=== PATIENT | male | born 1955 | race Caucasian/White ===

== ENCOUNTER 2019-09-28 14:55 | Outpatient (CLI) | payer BC, SELFPAY ==
--- NOTE | 2019-09-28 15:01 | ECG_ITS ---
Measurements Intervals [place] Rate: 62 P: 80 FL: 177 QRS: 94 QRSD: 112 T: 53 QT: 390 QTc: 396 Interpretive Statements SINUS RHYTHM RIGHT AXIS DEVIATION INCOMPLETE RIGHT BUNDLE BRANCH BLOCK BASELINE ARTIFACT- I, II, AVR, AVL, V3 BORDERLINE ECG Electronically Signed On 09-28-2019 15:42:40 FLIGHT LINE MECHANIC by Duong Gong D.O.
== END 2019-09-28 14:56 | disposition home or self-care (01) ==
LOC: ANHSURGERY 15:01
PROVIDERS: PCP Family Medicine; Visit Provider Surgery
DX: Z01.818 Encounter for other preprocedural examination (principal); K40.91 Unilateral inguinal hernia, without obstruction or gangrene, recurrent; F17.210 Nicotine dependence, cigarettes, uncomplicated
CPT/HCPCS: 36415; 86850; 86900; 86901; 93005

== ENCOUNTER 2019-10-06 00:14 | Day surgery (SDC) | payer BC, SELFPAY ==
[2019-09-22 12:48] VITALS: BMI 20.1
[2019-10-06] VITALS (17 sets, daily range): BP systolic 102–164; BP diastolic 57–94; PULSE 49–76; RESP 11–16; TEMP 36.4–36.6; O2SAT 100
[2019-10-06] MEDS: LACTATED RINGERS 1,000 ML 30 ML IV CONT ×4 (06:50→13:41)
--- NOTE | 2019-10-06 07:00 | WPDHPUPDATE1 ---
History and Physical Update Update Date/Time: 10/06/19 07:00 History and Physical has been reviewed, including an updated exam of the patient. There are NO changes in the patient's condition. Risks, benefits, and alternatives have been discussed and questions answered. Patient agrees to proceed with procedure.
[2019-10-06] MEDS: IBUPROFEN IV 800 MG/200 ML 800 MG/200 ML BAG 400 MG IVPB (07:30)
--- NOTE | 2019-10-06 08:05 | P.PNAN_ITS ---
Anes - Initial Pre Proc Eval Procedure: Operation Date: 10/06/19 08:30 Proposed Procedures p Laparoscopic Recurrent Right Inguinal Hernia Repair With Mesh, Laparoscopic Left Inguinal Hernia Repair With Mesh, Davinci Assisted - Buck Mejia DO s Open Umbilical Hernia Repair - Buck Mejia DO Date/Time: 10/06/19 08:05 Surgeon: Buck Mejia DO Pre Op Diagnosis: Recu Rt Inguinal, Left Inguinal, Umbilical Hernia Patient Data Age: 64 Gender: M Height: 1.78 m Weight: 63.3 kg Last Vital Signs Temp 36.6 C 10/06/19 07:07 Pulse 71 10/06/19 07:07 Resp 16 10/06/19 07:07 BP 117/74 10/06/19 07:07 Pulse Ox 100 10/06/19 07:07 Allergies Allergy/AdvReac Type Severity Reaction Status Date / Time lactose Allergy Mild Nausea Verified 10/06/19 06:31 Home Medications Medication Instructions Recorded Confirmed Type tamsulosin 0.4 mg capsule 0.4 mg PO DAILY 09/11/19 10/06/19 History Patient hx anesthesia problems: none Family hx anesthesia problems: none [facility] Past Medical History Medical History (Updated 10/06/19 @ 08:07 by Prosper Mace MD) BPH (benign prostatic hyperplasia) Emphysema, unspecified Enlarged prostate Surgical History Surgical History (Updated 10/06/19 @ 08:07 by Prosper Mace MD) H/O hernia repair right groin History of appendectomy History of testicular surgery Hx of cervical spine surgery Hx of spinal surgery C4-5, C6-7 FUSION 15/20 YRS AGO Social History Social History Smoking status: Current every day smoker Tobacco type: cigarettes Second hand tobacco smoke exposure: Yes Alcohol intake: current Substance use: never Additional occupation/education comments: [employer] Gender identity (if verbalized by the patient): Male Anes - Eval Final PreProcedure Day of Procedure 10/06/19 08:05 Patient weight: normal Heart: regular rate and rhythm Lungs: clear to auscultation and normal air movement Airway: Mallampati scale class II Neurological: alert and oriented Last oral intake: >/= 8 hours ASA classification: III Emergent: no Anesthetic plan: proceed Anesthesia type and monitoring: general LMA Informed Consent: The patient's anesthetic plan and its attendant risks and benefits were discussed with the patient/family/POA. Questions were solicited and answers provided to the satisfaction of the patient/family/POA.
[2019-10-06] MEDS: ceFAZolin 2 GM/D5W 50 ML 2 GM/50 ML BAG IVPB (08:30)
[2019-10-06] MEDS: BUPIVACAINE/EPINEPHRINE 0.5% 30 ML VIAL INFILTRATE (09:09)
--- NOTE | 2019-10-06 10:20 | PM.PROC ---
Procedure Note - Detailed Date of procedure: 10/06/19 Pre-op diagnosis: 1. Recurrent right inguinal hernia 2. Left inguinal hernia 3. Umbilical hernia Post-op diagnosis: same (Recurrent direct RIH, direct LIH, umbilical hernia) Procedure performed: 1. Laparoscopic recurrent right inguinal hernia repair with Progrip mesh, da Breanne assisted 2. Laparoscopic left inguinal hernia repair with Progrip mesh, da Breanne assisted 3. Umbilical hernia repair Description of procedure: Procedure as well as risks, benefits, and alternatives were discussed with the patient. Written consent was obtained and placed in chart prior to procedure. Patient was brought back to surgical suite. He was placed supine on operating table. Time-out was done to confirm patient and procedure. He was then intubated by Anesthesia Department. His abdomen was prepped and draped in sterile fashion using chlorhexidine prep. 0.5% bupivacaine with epinephrine was infiltrated at each location for incision. A 20 millimeter transverse incision was made just superior to the umbilicus using a 15 blade scalpel. I carefully dissected down to the fascia and identified the umbilical hernia. The hernia sac was carefully lifted off the umbilical stalk using electrocautery. Hernia sac was resected using electrocautery and discarded. A 12 millimeter trocar was inserted through the hernia defect and carbon dioxide insufflation was used to create a pneumoperitoneum. A camera was inserted and the abdominal cavity was inspected. The patient was placed in slight Trendelenburg position. An 8 millimeter incision was made on the right lateral abdomen and an 8 millimeter trocar was inserted under direct visualization. Another 8 millimeter incision was made in the left lateral abdomen and an 8 millimeter trocar was inserted under direct visualization. The robotic arms were brought up to the patient's bedside and secured to the ports. The camera and instruments were inserted. I then moved over to the robotic console and took control of the camera and instruments. After careful inspection of the abdominal cavity, I began scoring the peritoneum along the right lower quadrant using scissors with electrocautery. The preperitoneal plane was entered and this was carefully dissected caudally along the inferior epigastric vessels. Careful dissection with scissors with electrocautery and blunt dissection was used to continue this dissection. I dissected far enough laterally to allow for mesh placement, and also dissected medially to identify the pubic arch and Demarco's ligament. The hernia sac was identified and carefully dissected posteriorly. The cord contents were also identified and the peritoneum was carefully dissected far enough posteriorly to allow for mesh placement. Once an adequate pocket was created, I then placed the mesh within the preperitoneal pocket and carefully unfolded it. The mesh was centered on the hernia defect with adequate overlap circumferentially. The inferior edge of the mesh was inspected to ensure that it was far enough away from the peritoneal edge. The mesh appeared in proper position overlying the entire myopectineal orifice. The peritoneum was then closed over the mesh using a 3-0 V-lock running absorbable suture. I then began scoring the peritoneum along the left lower quadrant using scissors with electrocautery. The preperitoneal plane was entered and this was carefully dissected caudally along the inferior epigastric vessels. Careful dissection with scissors with electrocautery and blunt dissection was used to continue this dissection. I dissected far enough laterally to allow for mesh placement, and also dissected medially to identify the pubic arch and Demarco's ligament. The hernia sac was identified and carefully dissected posteriorly. The cord contents were also identified and the peritoneum was carefully dissected far enough posteriorly to allow for mesh placement. Once an adequa
== END 2019-10-06 17:21 | disposition home or self-care (01) ==
PROVIDERS: PCP Family Medicine; Visit Provider Surgery
PROC: 8E0Y4CZ Robotic Assisted Procedure of Lower Extremity, Percutaneous Endoscopic Approach (ICD-10-PCS; CPT 49650; principal; 2019-10-06 08:30)
PROC: (CPT 49651; 2019-10-06 08:30)
DX: K40.91 Unilateral inguinal hernia, without obstruction or gangrene, recurrent (principal); K40.90 Unilateral inguinal hernia, without obstruction or gangrene, not specified as recurrent; K42.9 Umbilical hernia without obstruction or gangrene; N40.0 Benign prostatic hyperplasia without lower urinary tract symptoms; J43.9 Emphysema, unspecified; F17.210 Nicotine dependence, cigarettes, uncomplicated
CPT/HCPCS: 49651; 49650; S2900; A9270; C1781; J0690; J1100; J1741; J2405; J2704; J2710; J3010; J7030; J7120

== ENCOUNTER → 2020-04-14 10:41 | Outpatient (CLI) | payer BC, SELFPAY ==
--- NOTE | ~2020-04-14 | XR_ITS ---
XR abdomen/kub 1V DATE: 04/14/2020 10:55 INDICATION: Gross hematuria TECHNIQUE: AP views COMPARISON: 07/06/2019 CT abdomen pelvis FINDINGS: There is a prominent amount of feces in the colon. No bowel obstruction is detected. No v isceromegaly is detected. The lung bases are clear. Normal heart size. Diffuse osteopenia. There is degenerative spurring of the thoracic and lumbar spine. IMPRESSION: Prominent amount of feces in the colon; no obstruction Reviewed, dictated and finalized at Location A. Reviewed, dictated and finalized at location A.
--- NOTE | ~2020-04-14 | CT_ITS ---
EXAMINATION: CT abdomen pelvis wo/w con DATE: 04/14/2020 11:32 INDICATION: Gross hematuria TECHNIQUE: Computed tomography (CT) of the abdomen and pelvis was performed without intravenous contr ast. CT of the abdomen and pelvis was then performed with a total of 130 mL Omnipaque 350 intravenous contrast using a double-bolus technique for simultaneous opacification of the renal parenchyma and r enal collecting system. The dose-length product (DLP) was 715.69 mGy-cm. Automated exposure control a nd iterative reconstruction technique were employed. COMPARISON: 07/06/2019 FINDINGS: There is severe emphysema of the visualized lung bases. Punctate calcifications in otherwis e normal appearing liver and spleen likely represent healed granulomatous disease. There is a small s liding hiatal hernia. The pancreas, gallbladder, and adrenal glands are normal. No stones are identif ied in the kidneys, ureters, or bladder. There is no hydronephrosis or hydroureter. No suspicious vibha al or urothelial lesion is identified. No pathologically enlarged abdominal or pelvic lymph nodes are identified. There is no free intraperitoneal gas or evidence of bowel obstruction. There is calcifie d atherosclerosis of the aorta and many of the other arteries. There is mild lumbar spondylosis. IMPRESSION: 1. No CT correlate for the patient's symptoms. Reviewed, dictated and finalized at location B.
[2020-04-14 11:09] LABS: Estimated Glomerular Filt Rate > 60
== END ==
PROVIDERS: PCP Family Medicine; Visit Provider Urology
DX: R31.0 Gross hematuria (principal)
CPT/HCPCS: 74018; 74178; Q9967

== ENCOUNTER → 2021-12-26 12:34 | Outpatient (CLI) | payer BC, SELFPAY ==
--- NOTE | ~2021-12-26 | CT_ITS ---
EXAMINATION: CT abdomen pelvis wo con DATE: 12/26/2021 13:02 INDICATION: Right lower quadrant abdominal pain TECHNIQUE: Computed tomography (CT) of the abdomen and pelvis was performed without intravenous contr ast. Automated exposure control and iterative reconstruction technique were employed. The dose-length product was 318.37 mGy-cm. COMPARISON: 04/14/2020 FINDINGS: Moderate emphysema at the bilateral lower lungs. Heart size is normal. Atherosclerotic coronary arter y calcific lesions versus stenting at the right coronary artery. No pericardial or pleural effusion. Multiple hepatic and splenic calcifications consistent with old granulomatous disease. Gallbladder, p ancreas and bilateral adrenal glands are normal. Kidneys and ureters are normal with no urolithiasis, hydroureteronephrosis or perinephric/ureteral stranding. Bladder is normal. Prostatomegaly. Prostati c calculus cases in several phleboliths in the pelvis. No abnormal bowel wall thickening or obstructi on. A few diverticula along the sigmoid colon without adjacent inflammatory change to suggest diverti culitis. No free intraperitoneal gas or fluid. No pathologically enlarged abdominal or pelvic lymphad enopathy. Small fat-containing left inguinal hernia. Moderate lumbar and lower thoracic spondylosis. IMPRESSION: 1. No urolithiasis or acute intra-abdominal/pelvic process. 2. Moderate emphysema. 3. Prostatomegaly. Reviewed, dictated and finalized at location B.
--- NOTE | ~2021-12-26 | XR_ITS ---
XR abdomen/kub 1V 12/26/2021 13:02 Indication: Right lower quadrant pain Procedure: KUB Comparison: 04/14/2020 Findings: Nonobstructive bowel gas pattern. Moderate colonic fecal loading. There is moderate gas in the left colon at the splenic flexure. There are calcified granulomas of the spleen. Lung bases are u nremarkable. There are multiple pelvic phleboliths. No acute osseous abnormality. Generalized osteope marisela. Impression: 1: Nonobstructive bowel gas pattern. Reviewed, dictated and finalized at location A. Impression: 1: Nonobstructive bowel gas pattern.
== END ==
PROVIDERS: PCP Urology; Visit Provider Urology
DX: R10.31 Right lower quadrant pain (principal); J43.9 Emphysema, unspecified; N40.0 Benign prostatic hyperplasia without lower urinary tract symptoms
CPT/HCPCS: 74018; 74176

== ENCOUNTER 2024-08-21 11:16 | Outpatient (CLI) | payer BC, SELFPAY ==
--- NOTE | ~2024-08-21 | XR_ITS ---
3 VIEWS LUMBAR SPINE Ordering provider: Rachel Giordano APRN History: . M54.50 - Low back pain, unspecified . Comparison: None. FINDINGS: VERTEBRAL BODIES: No visible fracture or subluxation. Osteopenia of the bones. Degenerative changes o f the spine. DISK SPACES: Narrowing of the disc L1-L2, L2-L3, and L4-L5 SOFT TISSUES: Atherosclerotic changes of the aorta. IMPRESSION: No acute osseous abnormality lumbar spine. Multilevel degenerative disc disease. Reviewed, dictated and finalized at location A. 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
== END 2024-08-21 11:17 | disposition home or self-care (01) ==
PROVIDERS: PCP Nurse Practitioner Family; Visit Provider Nurse Practitioner Family
DX: M51.369 Other intervertebral disc degeneration, lumbar region without mention of lumbar back pain or lower extremity pain (principal)
CPT/HCPCS: 72100

== ENCOUNTER 2024-09-07 06:50 | Outpatient (CLI) | payer BC, SELFPAY ==
--- NOTE | ~2024-09-07 | MR_ITS ---
EXAMINATION: MR lumbar spine wo con DATE: 09/07/2024 07:34 INDICATION: Low back pain, unspecified. TECHNIQUE: Magnetic resonance imaging (MRI) of the lumbar spine was performed without intravenous con trast. Sequences included sagittal T2-weighted FSE, sagittal T2-weighted FS FSE, sagittal T1-weighted FSE, and axial T2-weighted FSE. COMPARISON: Lumbar spine radiographs 08/21/2024 FINDINGS: There is 9 degrees levocurvature of thoracolumbar spine. There is mild chronic anterior wed ging of T12 and L1 vertebral bodies. There is mild chronic height loss at L3, L4, and L5 vertebral justin dies. There is mildly decreased disc height at L1-L2 and moderately decreased disc height at L4-L5. T he distal spinal cord signal intensity is normal. The conus medullaris is at T12-L1. The following di sc levels are specifically discussed: L1-L2: The disc is bulging. There is mild bilateral facet joint osteoarthritis. There is mild bilater al neural foraminal stenosis. There is mild central canal stenosis. L2-L3: The disc is bulging. There is severe bilateral facet joint osteoarthritis. There is hypertroph y of the ligamentum flavum. There is mild bilateral neural foraminal stenosis. There is mild central canal stenosis. L3-L4: The disc is bulging. There is severe bilateral facet joint osteoarthritis. There is hypertroph y of the ligamentum flavum. There is moderate bilateral neural foraminal stenosis. There is moderate central canal stenosis. L4-L5: The disc is bulging. There is moderate bilateral facet joint osteoarthritis. There is moderate bilateral neural foraminal stenosis. There is mild central canal stenosis. L5-S1: The disc is bulging. There is moderate bilateral facet joint osteoarthritis. There is mild cody ateral neural foraminal stenosis. There is mild central canal stenosis. IMPRESSION: 1. Moderate lumbar spondylosis. 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
== END 2024-09-07 06:51 | disposition home or self-care (01) ==
LOC: MICIMG 06:51
PROVIDERS: PCP Nurse Practitioner Family; Visit Provider Nurse Practitioner Family
DX: M47.816 Spondylosis without myelopathy or radiculopathy, lumbar region (principal); M51.360 Other intervertebral disc degeneration, lumbar region with discogenic back pain only
CPT/HCPCS: 72148

== ENCOUNTER 2024-11-11 11:49 | Outpatient (CLI) | payer BC, SELFPAY ==
--- NOTE | ~2024-11-11 | XR_ITS ---
3 VIEWS LUMBAR SPINE Ordering provider: Rosemarie Baldwin APRN History: . M54.50 - Low back pain, unspecified . Comparison: August 21, 2024 FINDINGS: VERTEBRAL BODIES: No visible fracture or subluxation. Osteopenia. Chronic loss of height of T12 and L1 is seen. Degenerative changes of the spine. DISK SPACES: Narrowing of this L1-L2, L2-L3, L3-L4 and L4-L5. Degenerative changes of the spine. Facet joint disease at the level of L5-S1. SOFT TISSUES: Atherosclerotic changes of the aorta. IMPRESSION: No acute osseous abnormality lumbar spine. Multilevel degenerative disc disease. Reviewed, dictated and finalized at location A.
== END 2024-11-11 11:50 | disposition home or self-care (01) ==
LOC: MICIMG 11:50
PROVIDERS: PCP Nurse Practitioner Adult Health; Visit Provider Nurse Practitioner Adult Health
DX: M51.369 Other intervertebral disc degeneration, lumbar region without mention of lumbar back pain or lower extremity pain (principal)
CPT/HCPCS: 72110

== ENCOUNTER 2024-11-25 10:20 | Outpatient (CLI) | payer BC, SELFPAY ==
--- NOTE | ~2024-11-25 | US_ITS ---
EXAMINATION:US venous doppler LE BI INDICATION:Leg edema TECHNIQUE: Multiple grayscale, color flow and Doppler images of the right and left lower extremity de ep venous systems were obtained and reviewed. COMPARISON:No prior studies for comparison. FINDINGS: The common femoral, superficial femoral and popliteal veins demonstrate normal respiratory variation, augmentation and compressibility. Color flow is also seen within the posterior tibial, pe roneal, greater saphenous and profunda veins. IMPRESSION: 1: No lower extremity deep venous thrombosis. Reviewed, dictated and finalized at location A.
== END 2024-11-25 10:21 | disposition home or self-care (01) ==
LOC: MICIMG 10:21
PROVIDERS: PCP Nurse Practitioner Family; Visit Provider Nurse Practitioner Family
DX: R60.0 Localized edema (principal)
CPT/HCPCS: 93970

== ENCOUNTER 2024-12-14 12:27 | Outpatient (CLI) | payer BC, SELFPAY ==
--- OUTSIDE RECORDS SUMMARY | 2024-12-14 12:30 | XMS_ITS | Clinical Summary ---
Author Organization [facility] Address [address] [place] [address] Phone Care Team Providers Care Surface Plate Inspector Name Role Phone Sandrita Carpenter MD Primary Care Provider [phone] Allergies No known active allergies Medications No known medications Social History Tobacco Use Types Packs/Day Years Used Date Smoking Tobacco: Unknown Tobacco Cessation:Counseling Given: Not Answered Sex and Gender Information Value Date Recorded Sex Assigned at Not on file Legal Sex Male 2:25 PM CDT Gender Identity Not on file Sexual Orientation Not on file Last Filed Vital Signs Vital Sign Reading Time Taken Comments Blood Pressure 158/79 03/07/2024 8:18 AM CDT Pulse 60 03/07/2024 8:18 AM CDT Temperature 35.8 C (96.5 F) 03/07/2024 8:18 AM CDT Respiratory Rate 16 03/07/2024 8:18 AM CDT Oxygen Saturation 99% 03/07/2024 8:18 AM CDT Inhaled Oxygen Concentration - - Weight 61.7 kg (136 lb 0.4 oz) 03/07/2024 8:18 A M CDT Height 177.8 cm (5' 10 ) 03/07/2024 8:18 AM CDT Body Mass Index 19.52 03/07/2024 8:18 AM CDT Plan of Treatment Not on file Insurance MEDICARE [facility] Care Teams Surface Plate Inspector Relationship Specialty Start Date End Date Sandrita Carpenter MD [address] [place] [address] PCP - General Family Medicine 02/29/24
--- NOTE | 2024-12-14 12:34 | ECHO_ITS ---
Patient Info Name: Shan Edmond Age: 69 years : 1955 Gender: Male Ht: 70 in Wt: 135 lbs BSA: 1.73 m2 HR: 66 bpm BP: 196 / 89 mmHg Technical Quality: Good Exam Date: 12/14/2024 12:38 PM Exam Location: Echo Lab Patient Status: Outpatient Admit Date: 12/14/2024 Staff Ordering Physician: Rachel Giordano APRN Esthetician And Manager Medical Spa: Verónica Adams RDCS Attending Provider: Rachel Giordano APRN Referring Physician: Pasquale COTTER; Exam Type: CA echo doppler color flow Study Info Indications R60.9 - Edema, unspecified Complete two-dimensional, color flow and Doppler transthoracic echocardiogram is performed. Summary 1. Complete two-dimensional, color flow and Doppler transthoracic echocardiogram is performed. 2. Left ventricular chamber dimension is normal. 3. Left ventricular systolic function is normal, estimated at 60-65%. 4. The left ventricular diastolic function is grade I diastolic dysfunction. 5. E/e' 6 is not elevated. 6. There is mild aortic valve sclerosis. 7. There is mild aortic valve regurgitation. 8. There is mild mitral valve regurgitation. 9. There is trace tricuspid valve regurgitation. 10. No pulmonary hypertension, estimated pulmonary arterial systolic pressure is 31 mmHg. Left Ventricle E/e' 6 is not elevated. Left ventricular chamber dimension is normal. Left ventricular systolic function is normal, estimated at 60-65%. The left ventricular diastolic function is grade I diastolic dysfunction. Right Ventricle Right ventricular chamber dimension is normal. Right ventricular systolic function is normal. Left Atria Left atrial chamber dimension is normal. Right Atria Right atrial chamber dimension is normal. Aortic Valve The aortic valve is trileaflet. There is mild aortic valve sclerosis. There is no aortic valve stenosis. There is mild aortic valve regurgitation. Pulmonic Valve There is no pulmonic regurgitation. Mitral Valve There is no mitral valve stenosis. There is mild mitral valve regurgitation. Tricuspid Valve There is trace tricuspid valve regurgitation. No pulmonary hypertension, estimated pulmonary arterial systolic pressure is 31 mmHg. Pericardium/Pleural There is no pericardial effusion. Inferior Vena Cava Normal inferior vena cava with >50% collapse upon inspiration consistent with normal right atrial pressure, 5 mmHg. Aorta The aortic root size at the sinus of Valsalva is normal. Left Ventricular Outflow Tract Name Value Normal LVOT 2D LVOT Diameter 2.0 cm LVOT Doppler LVOT Peak Gradient 3 mmHg LVOT Mean Gradient 1 mmHg LVOT VTI 18 cm LVOT VTI/AV VTI Ratio 0.6 LVOT Stroke Volume 55 ml LVOT CO 3.3 l/min LVOT CI 1.9 l/min/m2 Pulmonic Valve Name Value Normal RVOT Doppler RVOT Peak Gradient 1 mmHg PV Doppler PV Peak Gradient 4 mmHg Mitral Valve Name Value Normal MV Doppler MV Decel [place] 242 cm/s2 MV PHT 79 ms MV Area (PHT) 2.8 cm2 4.0-5.0 MV Diastolic Function MV E Peak Velocity 66 cm/s MV A Peak Velocity 67 cm/s MV E/A 1.0 MV Decel Time 272 ms Tricuspid Valve Name Value Normal TV Regurgitation Doppler TR Peak Velocity 254 cm/s TR Peak Gradient 22 mmHg Estimated PAP/RSVP RA Pressure 5 mmHg <=5 PA Systolic Pressure 31 mmHg <36 RV Systolic Pressure 31 mmHg <36 Aorta Name Value Normal Ascending Aorta Ao Root Diameter (MM) 3.5 cm Ao Root Diam Index (MM) 2.0 cm/m2 Aortic Valve Name Value Normal AV Doppler AV Peak Velocity 117 cm/s AV Peak Gradient 5 mmHg AV Mean Gradient 3 mmHg AV VTI 28 cm AV Area (Cont Eq VTI) 1.9 cm2 >=3.0 AV Area (Cont Eq Noel) 2.1 cm2 AV Regurgitation 2D LVOT Area 3.0 cm2 AV Regurgitation Doppler AR Decel Time 2,542 ms AR Decel [place] 174 cm/s2 AR PHT 737 ms Ventricles Name Value Normal LV Dimensions 2D/MM IVS Diastolic Thickness (2D) 1.0 cm 0.6-1.0 IVS Diastole Thickness (MM) 0.5 cm 0.6-1.0 LVID Diastole (2D) 4.3 cm 4.2-5.8 LVID Diastole (MM) 5.9 cm 4.2-5.8 LVIW Diastolic Thickness (2D) 1.0 cm 0.6-1.0 LVIW Diastolic Thickness (MM) 0.7 cm 0.6-1.0 LVID Systole (2D) 2.6 cm 2.5-4.0 LVID Systole (MM) 3.1 cm 2.5-4.0 LVOT Diameter 2.0 cm LV Mass (2D Cubed) 146.23 g 88.00-224.00 LV Mass Index (2D Cubed) 85 g/m2 49-115 Relative Wall Thickness (2D) 0.47 LV Mass (MM Cubed) 123.87 g 88.00-224.00 LV Mass Index (MM Cubed) 72 g/m2 49-115 Relative Wall Thickness (MM) 0.25 LV Fractional Shortening/Ejection Fraction 2D/MM LV Fractional Shortening (2D) 38 % 25-43 LV Fractional Shortening (MM) 47 % 25-43 LV EF (MM Teicholz) 77 % 52-72 LV EF (2D Teicholz) 69 % 52-72 LV Diastolic Volume (4C MOD) 64 ml LV EF (4C MOD) 67 % LV Diastolic Volume (2C MOD) 74 ml LV EF (2C MOD) 63 % LV Diastolic Volume (BP MOD) 70 ml 62-150 LV Diastolic Volume Index (BP MOD) 40 ml/m2 34-74 LV Systolic Volume (BP MOD) 24 ml 21-61 LV Systolic Volume Index (BP MOD) 14 ml/m2 11-31 LV EF (BP MOD) 65 % 52-72 LV Diastolic Length (4C) 7.6 cm LV Systolic Length (4C) 6.1 cm LV Stroke Volume (4C MOD) 43 ml Atria Name Value Normal LA Dimensions LA Dimension (MM) 3.4 cm 3.0-4.1 LA Volume (4C A-L) 26 ml LA Volume (BP A-L) 37 ml RA Dimensions RA Area (4C) 14.4 cm2 <=18.0 Report Signatures
== END 2024-12-14 12:28 | disposition home or self-care (01) ==
PROVIDERS: PCP Nurse Practitioner Family; Visit Provider Nurse Practitioner Family
DX: R93.1 Abnormal findings on diagnostic imaging of heart and coronary circulation (principal); R60.9 Edema, unspecified
CPT/HCPCS: 93306

== ENCOUNTER 2024-12-23 08:23 | Outpatient (CLI) | payer BC, SELFPAY ==
--- NOTE | ~2024-12-23 | XR_ITS ---
EXAMINATION: XR chest 2V DATE: 12/23/2024 10:13 INDICATION: Lumbar spinal stenosis TECHNIQUE: PA and lateral views of the chest were obtained. COMPARISON: Chest radiograph dated 06/06/2011 FINDINGS: Hyperexpansion lungs consistent with emphysema better appreciated on CT abdomen dated 12/26/2021. Mild biapical pleural-parenchymal scarring. Calcified right hilar and mediastinal lymph nodes consistent with old granulomatous disease. The cardiomediastinal silhouette is normal. Mild thoracic spondylosis with chronic mild anterior wedging of a couple lower thoracic vertebral bodies. IMPRESSION: 1. Emphysema. No acute cardiopulmonary disease. Reviewed, dictated and finalized at location A.
--- OUTSIDE RECORDS SUMMARY | 2024-12-23 09:08 | XMS_ITS | Clinical Summary ---
Author Organization [facility] Address [address] [place] [address] Phone Care Team Providers Care Clinical Applications Manager Name Role Phone Sandrita Carpenter MD Primary Care Provider Allergies No known active allergies Medications No [...] of Treatment Not on file Insurance MEDICARE [facility] Care Teams Clinical Applications Manager Relationship Specialty Start Date End Date Sandrita Carpenter MD [address] [place] [address] PCP - General Family Medicine 02/29/24
--- NOTE | 2024-12-23 09:46 | ECG_ITS ---
Test Date: 2024-12-23 09:53:33 Measurements Intervals [place] Rate: 53 P: 80 MI: 177 QRS: 82 QRSD: 107 T: 47 QT: 426 QTc: 401 Interpretive Statements SINUS BRADYCARDIA TALL T-WAVES, SUGGESTS HYPERKALEMIA VERSUS HYPERACUTE ISCHEMIA PATTERN ABNORMAL ECG No previous ECG available for comparison Electronically Signed On 12-23-2024 13:14:01 CDT by Jesse Laureano M.D.
[2024-12-23 10:17] LABS: Hematocrit 45.9 % (42.0-52.0); Hemoglobin 14.8 g/dL (14.0-18.0); Mean Corpuscular HGB Conc 32.2 g/dl (32-36); Mean Corpuscular Hemoglobin 32.4 pg (26-34); Mean Corpuscular Volume 100.4 fl (80-100); Mean Platelet Volume 10.3 fl (7.4-10.4); Platelet Count Result 220 k/mm3 (150-375); Red Blood Count 4.57 M/mm3 (4.6-6.20)
[2024-12-23 10:28] LABS: Add Urine Microscopic? YES; Appearance Urine Clear (Clear); Bacteria Urine None Seen /hpf; Bilirubin Urine Negative (Negative); Blood Urine Negative (Negative); Color Urine Yellow (Yellow); Glucose Urine UA Negative (Negative); Ketones Urine Negative (Negative); Leukocyte Esterase Ur Trace LEU/UL (Negative); Nitrate Urine Negative (Negative); Non Pathogenic Casts 0-2; Protein Urine Negative (Negative); RBC Urine 0-2 /hpf (0-2); Specific Grav Ur 1.009 (1.001-1.035); Squamous Epithelial Cell Urine None Seen /hpf (Few); Urobilinogen Urine 0.2 mg/dL (<2.0); WBC Urine 0-5 /hpf (0-3)
[2024-12-23 10:29] LABS: INR 1.1; Prothrombin Time 14.3 Seconds (11.1-14.7)
[2024-12-23 10:30] LABS: Partial Thromboplastin Time 28.5 Seconds (22.3-36.8)
[2024-12-23 10:36] LABS: Anion Gap 6 mmol/L (4-12); Blood Urea Nitrogen 13 mg/dL (9-20); Calcium 9.4 mg/dL (8.4-10.2); Carbon Dioxide 29 mmol/L (22-30); Chloride 107 mmol/L (98-107); Estimated Glomerular Filt Rate > 60; Glucose 102 mg/dL (65-110); Potassium 4.9 mmol/L (3.4-5.0); Sodium 142 mmol/L (137-145)
== END 2024-12-23 08:24 | disposition home or self-care (01) ==
PROVIDERS: PCP Nurse Practitioner Family; Visit Provider Neurological Surgery
DX: Z01.818 Encounter for other preprocedural examination (principal); M48.062 Spinal stenosis, lumbar region with neurogenic claudication
CPT/HCPCS: 36415; 71046; 80048; 81001; 85027; 85610; 85730; 93005

== ENCOUNTER 2024-12-30 09:07 | Outpatient (CLI) | payer BC, SELFPAY ==
--- NOTE | ~2024-12-30 | NM_ITS ---
EXAMINATION: NM gi stress w perfusion DATE: 12/30/2024 12:21 INDICATION: Abnormal EKG TECHNIQUE: Rest images were obtained following intravenous administration of 10 mCi Tc99m tetrofosmin (Myoview). The patient was infused intravenously with Lexiscan (Regadenoson). Then, 33 mCi Tc99m tet rofosmin (Myoview) was administered intravenously, and stress images were obtained. Data was reconstr ucted into short axis and horizontal and vertical long axis SPECT images. Gated SPECT images were als o obtained. COMPARISON: None. FINDINGS: There is no definite reversible or fixed perfusion abnormality to suggest ischemia or infar ction. There is normal left ventricular chamber size, wall motion and ejection fraction. Left ventr icular ejection fraction measures >70%. IMPRESSION: 1. Normal myocardial perfusion at rest and during stress. 2. Left ventricular ejection fraction measuring >70%. Reviewed, dictated and finalized at location A.
--- OUTSIDE RECORDS SUMMARY | 2024-12-30 09:12 | XMS_ITS | Clinical Summary ---
Author Organization [facility] Address [address] [place] [address] Phone Care Team Providers Care Depot Manager Name Role Phone Sandrita Carpenter MD Primary Care Provider [phone] Allergies No known active allergies Medications No [...] A M CDT Height 177.8 cm (5' 10) 03/07/2024 8:18 AM CDT Body Mass Index 19.52 03/07/2024 8:18 AM CDT Plan of Treatment Not on file Insurance MEDICARE [facility] Care Teams Depot Manager Relationship Specialty Start Date End Date Sandrita Carpenter MD [address] [place] [address] PCP - General Family Medicine 02/29/24
--- NOTE | 2024-12-30 09:21 | EST_ITS ---
Patient Info Name: Shan Edmond Age: 69 years : 1955 Gender: Male Ht: 70 in Wt: 138 lbs BSA: 1.75 m2 HR: 53 bpm BP: 174 / 85 mmHg Exam Date: 12/30/2024 9:21 AM Patient Status: O Admit Date: 12/30/2024 Exam Type: CA stress gi w NM A regadenoson stress test was performed. Staff Referring Physician: Rachel Giordano Attending Provider: Rachel Giordano Exercise Technologist: Jennifer Booth Exercise Physician: Duong Gong DO Summary 1. 1. Negative lexiscan stress test for ischemic ST changes by ECG criteria. 2. 2. Baseline hypertension. 3. 3. Nuclear scan to follow and will be reported separately. Please correlate with it. 4. 4. Patient informed of the above results. Protocol: Lexiscan Stress ECG Details Stage: REST Duration (min): 2 min : 0 sec HR (bpm): 56 SBP (mmHg): 174 DBP (mmHg): 85 Stage: REST Duration (min): 5 min : 39 sec HR (bpm): 55 SBP (mmHg): 174 DBP (mmHg): 85 Stage: STAGE 1 Duration (min): 1 min : 0 sec HR (bpm): 62 SBP (mmHg): 162 DBP (mmHg): 95 Stage: RECOVERY Duration (min): 1 min : 0 sec HR (bpm): 74 SBP (mmHg): 162 DBP (mmHg): 95 Stage: RECOVERY Duration (min): 2 min : 0 sec HR (bpm): 74 SBP (mmHg): 162 DBP (mmHg): 95 Stage: RECOVERY Duration (min): 3 min : 0 sec HR (bpm): 73 SBP (mmHg): 139 DBP (mmHg): 74 Stage: RECOVERY Duration (min): 3 min : 32 sec HR (bpm): 71 SBP (mmHg): 139 DBP (mmHg): 74 Rest HR: 55 bpm Peak HR: 76 bpm Rest Sys BP: 174 mmHg Peak Sys BP: 162 mmHg Max Pred HR: 150 bpm % Max Pred HR: 51 % Target HR: 128 bpm Max RPP: 12,312 bpm*mmHg Termination Reason: Completed protocol Cardiac Symptoms: Shortness of breath Total Time: 1 min : 0 sec Rest Lyman BP: 85 mmHg Peak Lyman BP: 95 mmHg Total Dose: 0.4 mg Resting ECG Sinus rhythm, IRBBB. Stress ECG No ST changes. Arrhythmias None. Report Signatures
== END 2024-12-30 09:08 | disposition home or self-care (01) ==
PROVIDERS: PCP Nurse Practitioner Family; Visit Provider Nurse Practitioner Family
DX: Z01.810 Encounter for preprocedural cardiovascular examination (principal); R94.31 Abnormal electrocardiogram [ECG] [EKG]
CPT/HCPCS: 78452; 93017; A9502; J2785

== ENCOUNTER 2025-01-08 00:07 | Day surgery (SDC) | payer BC, SELFPAY ==
[2024-12-23 09:07] VITALS: BP 169/80; PULSE 62; RESP 16; TEMP 36.4; O2SAT 100; BMI 20.4
--- NOTE | 2024-12-23 09:28 | PC.NURSE ---
Report to the Outpatient Waiting Room, entrance under the green pavilion located off [facility], at time ___6:00AM____ on date ___01/08/25____. Planned Procedure Time: ___7:30AM .? Time changes happen often and if your time is changed the preop area will call you the afternoon before. - You and your visitor will be asked to self-screen and do not enter if you have any COVID symptoms. Please call surgeon if you need to reschedule. - A mask is optional within the hospital at this time. Patients may have clear liquids (water, carbonated beverages, clear teas, apple juice) until 3 hours prior to surgery (4:30AM) with a maximum of 20 ounces. - No food from midnight until time of surgery and no smoking, or chewing tobacco (or any form of nicotine). No chewing gum, candy or mints. Take only the following medications with a SIP of water on the morning of surgery: NONE DO NOT STOP ANY OF YOUR OTHER PRESCRIPTION MEDICATIONS PRIOR TO SURGERY EXCEPT THE FOLLOWING Hold all vitamins and supplements for 3 days per anesthesiologist.- LAST DOSE 01/04/25 Medications to discontinue per DR MONTEIRO NONE Date to take last dose Please no make-up, nail czech, hairspray, perfume, deodorant, or body powder the day of surgery.? No jewelry (including any body piercings) or valuables the day of surgery, leave them at home.? Please take a shower or bath the night before, or the morning of, surgery with an antibacterial soap.? Wear comfortable, loose fitting clothing.? - Jewelry must be removed prior to entering the operating room.? Rings and piercings that are not removed may be cut off. - The hospital will not accept responsibility for valuables.? - Please leave all valuables, including medications, at home the day of surgery. If you are going home after surgery, a licensed tanker truck driver must drive you home.? - NO public transportation without another adult if you receive anesthesia. - We recommend that an adult stay with you for 24 hours following discharge. - We also recommend that you do not drive, make important decision, drink alcoholic beverages, or take any drugs that were not prescribed by your health care provider for at least 24 hours after your discharge time. Follow any additional instructions given to you from your surgeon. Telephone instructions given to ___PATIENT and asked if any additional questions and then verbalized understanding. Patient advised to call surgeon office or pre surgery nurse liaison [phone] if any additional questions.
[2025-01-08] VITALS (7 sets, daily range): BP systolic 136–150; BP diastolic 67–86; PULSE 53–61; RESP 14–18; TEMP 36.1–36.4; O2SAT 96–100
--- NOTE | ~2025-01-08 | XR_ITS ---
XR fluoroscopy no charge Indication: L3-4 bilateral lumbar laminectomy TECHNIQUE: Fluoroscopy used during L3-4 bilateral lumbar laminectomy performed by [Manuel booker MD] on 01/09/2024. 11 seconds of fluoroscopy with one fluoroscopic images captured. FINDINGS: Correlate with procedure note. IMPRESSION: Fluoroscopy used during L3-4 bilateral lumbar laminectomy. Reviewed, dictated and finalized at location A.
--- OUTSIDE RECORDS SUMMARY | 2025-01-08 00:10 | XMS_ITS | Clinical Summary ---
Author Organization [facility] Address [address] [place] [address] Phone Care Team Providers Care Assisted Living Coordinator Name Role Phone Sandrita Carpenter MD Primary Care Provider [phone] Allergies No known active allergies Medications No [...] of Treatment Not on file Insurance MEDICARE [facility] Care Teams Assisted Living Coordinator Relationship Specialty Start Date End Date Sandrita Carpenter MD [address] [place] [address] PCP - General Family Medicine 02/29/24
--- NOTE | 2025-01-08 06:36 | WPDANESEPPF ---
Anes - Initial Pre Proc Eval Procedure: Operation Date: 01/08/25 07:30 Proposed Procedures p L3-4, Bilateral Lumbar Laminectomy with Medial Facetectomy - Manuel Pina MD Date/Time: 01/08/25 06:36 Surgeon: Manuel Pina MD Pre Op Diagnosis: L3-4 lumbar spinal stenosis Patient Data Age: 69 Gender: M Height: 1.75 m Weight: 62.8 kg Last Vital Signs Temp 36.4 C L 12/23/24 09:07 Pulse 62 12/23/24 09:07 Resp 16 12/23/24 09:07 BP 169/80 H 12/23/24 09:07 Pulse Ox 100 12/23/24 09:07 O2 Del Method Room Air 12/23/24 09:07 Allergies Allergy/AdvReac Type Severity Reaction Status Date / Time lactose AdvReac Mild Nausea Verified 12/23/24 09:00 Home Medications ?Medication ?Instructions ?Recorded ?Confirmed ?Type finasteride 5 mg tablet 5 mg PO DAILY #90 tabs 11/11/24 12/23/24 Rx acetaminophen 500 mg capsule 500 mg PO Q6H PRN pain 12/23/24 12/23/24 History multivitamin (Daily Vitamin 2 tablet PO DAILY 12/23/24 12/23/24 History Formula tablet) Patient hx anesthesia problems: none Family hx anesthesia problems: none Results Review: All pre-operative results and documents have been reviewed as part of the pre-operative evaluation. [facility] Past Medical History Medical History BPH (benign prostatic hyperplasia) Enlarged prostate Emphysema, unspecified Surgical History Surgical History History of umbilical hernia repair 10/06/2019 History of inguinal hernia repair laparoscopic recurrent right inguinal hernia repair with Progrip mesh, da Vinic assisted Laparoscopic left inguinal hernia with Progrip, da Breanne assisted 10/06/2019 Hx of spinal surgery C4-5, C6-7 FUSION 15/20 YRS AGO Hx of cervical spine surgery History of testicular surgery History of appendectomy H/O hernia repair right groin Family History Family History Father Dementia Mother Hypertension Grandparent Diabetes mellitus Cerebrovascular accident Social History Social History Smoking packs per day: 1 Smoking cigarettes per day: 20.0 Years smoked: 55 Smoking pack-years: 55.00 Smoking status: Current every day smoker Tobacco type: cigarettes Second hand tobacco smoke exposure: Yes Alcohol intake: current Drinks per week: 4 Alcohol use details: one drink per day Substance use: never Living arrangements: with family Additional living arrangements comments: 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 Informed Consent: The patient's anesthetic plan and its attendant risks and benefits were discussed with the patient/family/POA. Questions were solicited and answers provided to the satisfaction of the patient/family/POA.
[2025-01-08] MEDS: LACTATED RINGERS 1,000 ML 30 ML IV CONT ×2 (07:00→08:40)
--- NOTE | 2025-01-08 07:16 | WPDHPUPDATE1 ---
History and Physical Update Update Date/Time: 01/08/25 07:16 History and Physical has been reviewed, including an updated exam of the patient. There are NO changes in the patient's condition. Risks, benefits, and alternatives have been discussed and questions answered. Patient agrees to proceed with procedure.
--- NOTE | 2025-01-08 07:16 | PM.IMHP ---
H&P: HPI History of Present Illness Date/Time: 01/08/25 07:16 Chief Complaint: This 69-year-old gentleman who presents with chronic back pain with symptoms of with his back going out over many years also with evidence of spinal stenosis at L3-4. He did get a steroid injection at L3-4 which provided 90% relief of his symptoms for about a month. He has been seen by my colleague Rosemarie who has been provided a very detailed documentation of his history. He is has to see me for evaluation for surgical intervention. He notes that conservative management are not helping him and he would like to proceed with surgery. [facility] Past Medical History Medical History BPH (benign prostatic hyperplasia) Enlarged prostate Emphysema, unspecified Surgical History Surgical History History of umbilical hernia repair 10/06/2019 History of inguinal hernia repair laparoscopic recurrent right inguinal hernia repair with Progrip mesh, da Vinic assisted Laparoscopic left inguinal hernia with Progrip, da Breanne assisted 10/06/2019 Hx of spinal surgery C4-5, C6-7 FUSION 15/20 YRS AGO Hx of cervical spine surgery History of testicular surgery History of appendectomy H/O hernia repair right groin Family History Family History Father Dementia Mother Hypertension Grandparent Diabetes mellitus Cerebrovascular accident Social History Social History Smoking packs per day: 1 Smoking cigarettes per day: 20.0 Years smoked: 55 Smoking pack-years: 55.00 Smoking status: Current every day smoker Tobacco type: cigarettes Second hand tobacco smoke exposure: Yes Alcohol intake: current Drinks per week: 4 Alcohol use details: one drink per day Substance use: never Living arrangements: with family Additional living arrangements comments: Occupation/Education: retired Additional occupation/education comments: [employer] Gender identity (if verbalized by the patient): Male Spiritual care concerns: No Meds Home Medications and Allergies Home Medications ?Medication ?Instructions ?Recorded ?Confirmed ?Type finasteride 5 mg tablet 5 mg PO DAILY #90 tabs 11/11/24 12/23/24 Rx acetaminophen 500 mg capsule 500 mg PO Q6H PRN pain 12/23/24 12/23/24 History multivitamin (Daily Vitamin 2 tablet PO DAILY 12/23/24 12/23/24 History Formula tablet) Allergies Allergy/AdvReac Type Severity Reaction Status Date / Time lactose AdvReac Mild Nausea Verified 01/08/25 07:13 Vital Signs Vital Signs - 24 hr 01/08/25 07:00 Temperature 97.5 F L Pulse Rate 61 Respiratory Rate 16 Blood Pressure 147/78 H Pulse Oximetry 100 Oxygen Delivery Room Air Exam Narrative: awake alert no acute distress Moves BLE well 5/5 including IP/Q/H/PF/DF/EHL Assessment and Plan Assessment and plan (1) Neurogenic claudication due to lumbar spinal stenosis: Code(s): M48.062 - Spinal stenosis, lumbar region with neurogenic claudication Status: Acute Plan proceed with L3/4 bilateral lumbar laminectomy and medial facetectomy.
[2025-01-08] MEDS: ceFAZolin 2 GM/D5W 50 ML 2 GM/50 ML BAG IVPB (07:28)
[2025-01-08] MEDS: BUPIVACAINE/EPINEPHRINE 0.5% 30 ML VIAL INFILTRATE (08:11)
--- NOTE | 2025-01-08 08:40 | W.PM.PROC2 ---
Procedure Note - Detailed Date of Procedure 01/08/25 Pre-op Diagnosis L3-4 lumbar spinal stenosis Post-op Diagnosis Same Procedure Performed L3-4 bilateral lumbar laminectomy and bilateral medial facetectomy Use of operating microscope for microdissection Surgeon Manuel Pina MD Anesthesia General Indications Lumbar spinal stenosis and neurogenic claudication Findings Severe lumbar spinal stenosis Description of Procedure Once the patient was intubated the patient was positioned prone onto the Bob frame. All bony prominences were padded and secured. Lateral fluoroscopy was brought in to confirm the L3-4 level. Skin incision was marked. The patient was then prepped and draped in the usual sterile fashion. Final time-out was performed to indicate correct patient procedure site. Midline incision was made at preplanned incision. The fascia was opened and and the muscle was removed via subperiosteal dissection. Self-retaining retractors were placed an upgoing curette was placed underneath the lamina of L3 and lateral fluoroscopy was brought in to confirm the correct level. I then brought in the operating microscope for the remainder of the case. At this point I used a rongeur to remove the majority of the spinous process some of the lamina. I then continued to use the high-speed bur to thin down the lamina until he get a curette in to undermine the remaining bone. This was then removed with a series of Kerrison Sanchez. The thecal sac was then decompressed rostrally and caudally the L3-4 disc space. This was confirmed again with lateral fluoroscopy spanning the disc space. Once all the bony prominences were removed hemostasis was obtained vigorously with FloSeal, bone wax. The wound was copiously irrigated hemostasis was again obtained and there was no identifiable bleeding. The wound was then closed in layers. Steri-Strips were placed on the scan and the patient was flipped supine and turned over Anesthesia for extubation. There were no complications during the surgery. Estimated Blood Loss 50 Complications No immediate complications [facility] Billing Surgery - Charge Forward: Surgery Billing
== END 2025-01-08 10:24 | disposition home or self-care (01) ==
PROVIDERS: PCP Nurse Practitioner Family; Visit Provider Neurological Surgery
PROC: (CPT 63005; principal; 2025-01-08 07:30)
DX: M48.062 Spinal stenosis, lumbar region with neurogenic claudication (principal); F17.210 Nicotine dependence, cigarettes, uncomplicated
CPT/HCPCS: 63047; 36415; 86850; 86900; 86901; 99199; J0690; J1100; J2405; J2704; J3010; J7030; J7120